=== PATIENT | female | born 1985 | race Caucasian/White ===

== ENCOUNTER 2022-06-14 18:00 | Inpatient (IN) | payer BC ==
[2022-06-25] MEDS ORDERED: Bupivacaine/Epinephrine 0.25% 30 ML VIAL ONE (08:00)
[2022-06-25] MEDS ORDERED: ePHEDrine Sulfate 50 MG/10 ML VIAL ONE (08:00)
[2022-06-25 20:34] VITALS: BMI 27.4
[2022-06-25] MEDS ORDERED: HYDROcodone/Acetaminophen 5/325 mg Tablet PO PRN (21:21)
[2022-06-25] MEDS ORDERED: Butorphanol Tartrate 1 MG/ML VIAL SLOW IVP PRN (21:21)
[2022-06-25] MEDS ORDERED: Lidocaine 1% (PF) 30 ML VIAL SC PRN (21:21)
[2022-06-25] MEDS ORDERED: Diphenoxylate HCl/Atropine Tablet PO PRN ×2 (21:21)
[2022-06-25] MEDS ORDERED: hydrALAZINE 20 MG/ML VIAL SLOW IVP PRN (21:21)
[2022-06-25] MEDS ORDERED: Ibuprofen 800 MG TAB PO PRN (21:21)
[2022-06-25] MEDS ORDERED: Carboprost 250 MCG/ML AMP IM PRN (21:21)
[2022-06-25] MEDS ORDERED: Promethazine HCl 25 MG/ML VIAL IM PRN (21:21)
[2022-06-25] MEDS ORDERED: Misoprostol 200 MCG TAB PR PRN (21:21)
[2022-06-25] MEDS ORDERED: Methylergonovine 0.2 MG/ML VIAL IM PRN (21:21)
[2022-06-25] MEDS ORDERED: Acetaminophen 500 MG TAB PO PRN (21:21)
[2022-06-25] MEDS ORDERED: Ondansetron PF 4 MG/2 ML Vial IVP PRN (21:21)
[2022-06-25] MEDS ORDERED: NS w/ Oxytocin 30 units 500 ML IV SCH ×2 (21:30)
[2022-06-25] MEDS: Misoprostol 100 MCG TAB VAG SCH (21:40)
[2022-06-25 21:42] LABS: Hemoglobin 10.5 g/dL (12.0-15.5); Mean Corpuscular HGB CONC 34.9 g/dL (32.0-36.0); Mean Corpuscular Hemoglobin 30.3 pg (27.0-33.0); Mean Corpuscular Volume 86.7 fl (81.6-98.3); Mean Platelet Volume 10.5 fl (7.4-10.4); Platelet Count 213 10x3/uL (150-450); RBC Distribution Width 13.3 % (11.5-14.5); Red Blood Cell (RBC) Count 3.47 10x6/uL (3.90-5.03); White Blood Cell (WBC) Count 9.9 10x3/uL (3.5-10.5)
[2022-06-25 22:05] LABS: Hep B Surf Ag Non-Reactive S/CO (NonReactive); Syphilis Antibody Nonreactive (Nonreactive); Syphilis Antibody Index 0.08 S/CO (<1.00 Non-Reactive)
[2022-06-25 22:06] LABS: HBSAg Index 0.17 S/CO (0-0.99)
[2022-06-26] MEDS: Misoprostol 100 MCG TAB VAG SCH ×3 (01:50→13:25)
[2022-06-26] MEDS: Lactated Ringer's 1,000 ML IV SCH ×4 (07:41→14:22)
[2022-06-26] MEDS ORDERED: Fentanyl 2 mcg/Bup 0.1% Cadd 100 ML ONE (07:48)
[2022-06-26] MEDS ORDERED: Ondansetron PF 4 MG/2 ML Vial IVP PRN (08:55)
[2022-06-26] MEDS ORDERED: Acetaminophen 325 MG TAB PO PRN (08:55)
[2022-06-26] MEDS ORDERED: Naloxone HCl 0.4 mg/ml Vial IVP PRN ×2 (08:55)
[2022-06-26] MEDS ORDERED: diphenhydrAMINE 50 MG/ML VIAL IVP PRN (08:55)
[2022-06-26] MEDS ORDERED: Promethazine HCl 25 MG/ML VIAL IM PRN (08:55)
[2022-06-26] MEDS ORDERED: Lactated Ringer's 500 ML IV PRN (08:55)
[2022-06-26] MEDS ORDERED: ePHEDrine Sulfate 50 MG/10 ML VIAL SLOW IVP PRN (08:55)
[2022-06-26] MEDS ORDERED: Moisturizing Cream (Eucerin) 113 GM JAR TOP PRN (08:55)
[2022-06-26] MEDS ORDERED: Fentanyl 2 mcg/Bupivacaine 0.1% Cassette 100 ML EPIDURAL SCH (09:00)
[2022-06-26] MEDS ORDERED: Communication Order-Pharmacy FS SCH (09:00)
[2022-06-26] MEDS ORDERED: Ondansetron PF 4 MG/2 ML Vial ONE (12:14)
[2022-06-26] MEDS ORDERED: hydrALAZINE 20 MG/ML VIAL SLOW IVP PRN (14:16)
[2022-06-26] MEDS ORDERED: Preparation H Ointment 28 GM TUBE PR PRN (14:16)
[2022-06-26] MEDS ORDERED: Benzocaine-Menthol 82.5 ML CAN TOP PRN (14:16)
[2022-06-26] MEDS ORDERED: Lanolin Ointment 7 GM TUBE TOP PRN (14:16)
[2022-06-26] MEDS ORDERED: Boostrix 0.5 ML (Tdap) VIAL IM ONE (14:16)
[2022-06-26] MEDS ORDERED: Bisacodyl 10 MG SUPP PR PRN (14:16)
[2022-06-26] MEDS ORDERED: traMADol HCl 50 MG TAB PO PRN (14:16)
[2022-06-26] MEDS ORDERED: Milk Of Magnesia 30 ML UDCUP PO PRN (14:16)
[2022-06-26] MEDS: Ferrous Sulfate 325 MG TAB PO SCH (15:30)
[2022-06-26] MEDS: Docusate 100 MG CAP PO SCH (22:13)
[2022-06-26] MEDS: Ibuprofen 800 MG TAB PO SCH (22:13)
[2022-06-27] MEDS: Ibuprofen 800 MG TAB PO SCH ×2 (05:16→13:49)
[2022-06-27 07:21] VITALS: TEMP 98.2
[2022-06-27] MEDS: Ferrous Sulfate 325 MG TAB PO SCH (08:55)
[2022-06-27] MEDS: Docusate 100 MG CAP PO SCH (08:55)
[2022-06-27] MEDS ORDERED: Prenatal Vitamin 1 TAB PO SCH (09:00)
[2022-06-27 10:28] VITALS: BP 115/72
== END 2022-06-27 16:05 | disposition home or self-care (01) | DRG 806 ==
LOC: CSHLD 06-25 19:46 → CSHPP 06-26 15:10
PROVIDERS: ADMIT Obstetrics & Gynecology; ATTEND Obstetrics & Gynecology
PROC: 10E0XZZ Delivery of Products of Conception, External Approach (ICD-10-PCS; principal; 2022-06-26)
PROC: 10907ZC Drainage of Amniotic Fluid, Therapeutic from Products of Conception, Via Natural or Artificial Opening (ICD-10-PCS; 2022-06-26)
PROC: 0HQ9XZZ Repair Perineum Skin, External Approach (ICD-10-PCS; 2022-06-26)
DX: O99.62 Diseases of the digestive system complicating childbirth (principal); K50.90 Crohn's disease, unspecified, without complications; Z37.0 Single live birth; Z3A.39 39 weeks gestation of pregnancy; D64.9 Anemia, unspecified; O99.02 Anemia complicating childbirth; O70.0 First degree perineal laceration during delivery; Z20.822 Contact with and (suspected) exposure to COVID-19
CPT/HCPCS: 36415; 51702; 85027; 86780; 86850; 86900; 86901; 87340; 87811; J2405; J2590; J7120

== ENCOUNTER 2022-06-23 10:26 | Outpatient (CLI) | payer BC | END 2022-06-23 10:27 | disposition home or self-care (01) | LOC: CSHLAB 10:26 | PROVIDERS: ATTEND Obstetrics & Gynecology | DX: Z20.822 Contact with and (suspected) exposure to COVID-19 (principal) | CPT/HCPCS: 87811 ==